=== PATIENT | male | born 1935 | race African-American/Black ===

== ENCOUNTER 2017-04-09 11:37 | Outpatient (CLI) | payer MEDICARE ==
[2017-04-09 13:55] LABS: Cardiac Risk 2.7 (Less than 4.5)
== END 2017-04-09 11:38 | disposition home or self-care (01) ==
LOC: NAVSJIPCSP 11:37
PROVIDERS: ATTEND Internal Medicine
DX: E78.5 Hyperlipidemia, unspecified (principal); Z79.899 Other long term (current) drug therapy
CPT/HCPCS: 36415; 80061